=== PATIENT | male | born 1990 | race Caucasian/White ===

== ENCOUNTER 2019-09-25 11:41 | Emergency (ER) | payer SELFPAY ==
[~2019-09-25] VITALS: Ht 165.1 cm; Wt 59.0 kg
[2019-09-25 12:04] VITALS: BP 118/87
--- NOTE | 2019-09-25 12:07 | NUR ---
PT TO [facility], VS STABLE
--- NOTE | 2019-09-25 12:25 | NUR ---
29/M BIB FAMILY C/O R SIDED HEADACHE 9 X 3 DAYS. VOMIT X 1 LAST NIGHT. DENIES INJURY OR TRUAMA.PATIENT STATES PAIN OF 8/10 AT THIS TIME. PATIENT POSITIONED FOR COMFORT; HOB ELEVATED; BEDRAILS UP X1; BED DOWN. ER MD MADE AWARE OF PT STATUS.
--- NOTE | 2019-09-25 13:22 | NUR ---
PT AMBULATED TO ER BED 12
[2019-09-25] MEDS ORDERED: NACL 0.9% 1,000 ML IV ONE (13:30)
[2019-09-25] MEDS ORDERED: KETOROLAC 30 MG/ML VIAL IVP ONE (13:30)
--- NOTE | 2019-09-25 13:42 | NUR ---
FLU SWAB COLLECTED. Addendum: 09/25/19 at 1352 by [email or web address] STREP SWAB COLLECTED
--- NOTE | 2019-09-25 14:04 | NUR ---
IVP/IVF MEDS GIVEN-NADR AT THIS TIME
[2019-09-25 14:24] LABS: BASOPHILS # (AUTO) 0.1 K/uL (0.00-0.22); BASOPHILS % (AUTO) 0.8 % (0.0-2.0); EOSINOPHILS # (AUTO) 0.2 K/uL (0-0.4); EOSINOPHILS % (AUTO) 2.2 % (0.0-4.0); HEMATOCRIT 46.1 % (36-52); HEMOGLOBIN 15.4 g/dL (12.0-18.0); LYMPHOCYTES # (AUTO) 1.8 K/uL (2.0-11.5); LYMPHOCYTES % (AUTO) 19.1 % (20.5-51.1); MEAN CORPUSCULAR HEMOGLOBIN 32 pg (27-31); MEAN CORPUSCULAR HGB CONC 33 g/dL (33-37); MEAN CORPUSCULAR VOLUME 95.1 fL (80-94); MONOCYTES % (AUTO) 10.5 % (1.7-9.3); NEUTROPHILS # (AUTO) 6.5 K/uL (1.8-7.7); NEUTROPHILS % (AUTO) 67.4 % (42.2-75.2); PLATELET COUNT (AUTO) 289 K/uL (140-450); RED BLOOD CELL COUNT(AUTO) 4.85 MIL/uL (4.20-6.10); RED CELL DISTRIBUTION WIDTH 13.9 % (11.6-13.7); WHITE BLOOD COUNT (AUTO) 9.6 K/uL (4.8-10.8)
[2019-09-25 14:53] LABS: ANION GAP 14.9 (8-16); CREATININE 0.8 mg/dL (0.7-1.3); POTASSIUM 3.9 mmol/L (3.5-5.1); TOTAL BILIRUBIN 0.5 mg/dL (0.0-1.0)
[2019-09-25 15:27] VITALS: BP 116/76
[2019-09-25 15:34] LABS: ALBUMIN 3.7 g/dL (3.4-5.0)
== END 2019-09-25 15:27 | disposition home or self-care (01) ==
LOC: MED 11:41
DX: R51 Headache (principal); J06.9 Acute upper respiratory infection, unspecified; J45.909 Unspecified asthma, uncomplicated; J02.9 Acute pharyngitis, unspecified
CPT/HCPCS: 36415; 80053; 85025; 87081; 87804; 96374; 99283; J1885; J7030